=== PATIENT | male | born 1990 | race Caucasian/White ===

== ENCOUNTER 2018-03-09 18:54 | Emergency (ER) | payer OTHER ==
[~2018-03-09] VITALS: Ht 175.3 cm; Wt 99.8 kg
[~2018-03-09 18:54] MED LIST: AMOX500 PO; AMPDEX30CR PO; Bactrim Ds Tab1 EACH PO; CYCL10 PO; Cyclobenzaprine5 MG PO; DIAZ2 PO; HYDACE5 PO; IBUP800 PO; NAPR500 PO; Norco 5-325 Ta1 EACH PO; OXYACE5T PO; PROM25 PO; RXOXYACE PO; RXPROM25 PO
== END 2018-03-09 19:56 | disposition home or self-care (01) ==
LOC: ER 18:54
DX: R20.8 Other disturbances of skin sensation (principal); F17.290 Nicotine dependence, other tobacco product, uncomplicated
CPT/HCPCS: 70450; 99284